=== PATIENT | female | born 1960 | race Caucasian/White ===

== ENCOUNTER 2018-08-13 20:43 | Emergency (ER) | payer OTHER ==
[~2018-08-13] VITALS: Ht 160 cm; Wt 62.1 kg
--- OUTSIDE RECORDS SUMMARY | ~2018-08-13 | XMS | Clinical Summary ---
Demographics + + + | Address | [address] | | | [place] [address] | + + + | Home Phone | | + + + | Preferred Language | Unknown | + + + | Marital Status | | + + + | Spiritism Affiliation | 1013 | + + + | Race | Unknown | + + + | Ethnic Group | Unknown | + + + Author + + + | Author | [facility] | | | and Idrisana | + + + | Organization | [facility] | | | and Idrisana | + + + | Address | Unknown | + + + | Phone | Unavailable | + + + Support + + + + + | Name | Relationship | Address | Phone | + + + + + | None,Per Patient | ECON | 11/21/12 | Unavailable | | | | NA, | | + + + + + | Rafi George | ECON | [address] | | | | | [place] | | | | | [address] | | + + + + + Care Team Providers + +------+ + | Care Materials Engineering Technician Name | Role | Phone | + +------+ + | Pcp, Prov Inactive | PP | | + +------+ + Allergies + + + + + + | Active Allergy | Reactions | Severity | Noted | Comments | | | | | Date | | + + + + + + | [place] Juice | | | 08//20 | | | | | | 13 | | + + + + + + Medications + + + +---------+------+------+-------+ | Medication | Sig | Dispensed | Refills | Star | End | Statu | | | | | | t | Date | s | | | | | | Date | | | + + + +---------+------+------+-------+ | | Take 1-2 tablets by | | 0 | 08/1 | | Activ | | oxyCODONE-acetaminop | mouth every 4 hours | | | 5/20 | | e | | hen (PERCOCET) 5-325 | as needed. | | | 13 | | | | mg per tablet | | | | | | | + + + +---------+------+------+-------+ | | Take 1 tablet by | | 0 | | | Activ | | HYDROcodone-acetamin | mouth every 6 hours | | | | | e | | ophen (NORCO) 5-325 | as needed. | | | | | | | mg per tablet | | | | | | | + + + +---------+------+------+-------+ | cyclobenzaprine | Take 10 mg by mouth | | 0 | | | Activ | | (FLEXERIL) 10 mg | 3 times daily as | | | | | e | | tablet | needed. | | | | | | + + + +---------+------+------+-------+ | buPROPion | Take 100 mg by mouth | | 0 | | | Activ | | (WELLBUTRIN) 100 mg | 2 times daily. | | | | | e | | tablet | | | | | | | + + + +---------+------+------+-------+ | cholecalciferol | Take 2,000 Units by | | 0 | | | Activ | | (VITAMIN D-3) 2000 | mouth Daily. | | | | | e | | UNITS TABS | | | | | | | + + + +---------+------+------+-------+ | gabapentin | Take 600 mg by mouth | | 0 | | | Activ | | (NEURONTIN) 600 MG | 2 times daily. | | | | | e | | tablet | | | | | | | + + + +---------+------+------+-------+ | diclofenac | Place 1 patch onto | | 0 | | | Activ | | (FLECTOR) 1.3% PTCH | the skin 2 times | | | | | e | | | daily. | | | | | | + + + +---------+------+------+-------+ | ibuprofen | Take 600 mg by mouth | | 0 | | | Activ | | (ADVIL,MOTRIN) 600 | every 8 hours as | | | | | e | | MG tablet | needed. | | | | | | + + + +---------+------+------+-------+ | HYDROmorphone | Take 1 tablet by | 20 | 0 | 11/03 | | Activ | | (DILAUDID) 2 mg | mouth up to 4 times | tablet | | 7/20 | | e | | tabletIndications: | daily as needed for | | | 13 | | | | Lumbar | severe pain for the | | | | | | | radiculopathy, | next 5 days. | | | | | | | acute, DDD | | | | | | | | (degenerative disc | | | | | | | | disease), lumbar, | | | | | | | | Spondylolisthesis of | | | | | | | | lumbar region | | | | | | | + + + +---------+------+------+-------+ Active Problems + + + | Problem | Noted Date | + + + | Lumbar radiculopathy, acute | 11/19/2012 | + + + | DDD (degenerative disc disease), lumbar | 11/19/2012 | + + + | Spondylolisthesis of lumbar region | 11/19/2012 | + + + | Facet arthritis of lumbar region | 11/19/2012 | + + + Family History + + +------+ + | Medical History | Relation | Name | Comments | + + +------+ + | Cancer | Mother | | throat CA | + + +------+ + | Cancer | Sister | | Breast CA | + + +------+ + + +------+--------+ + | Relation | Name | Status | Comments | + +------+--------+ + | Mother | | | | + +------+--------+ + | Sister | | | | + +------+--------+ + Social History + + + +--------+------+ | Tobacco Use | Types | Packs/Day | Years | Date | | | | | Used | | + + + +--------+------+ | Current Every Day | Cigarettes | 0.5 | | | | Smoker | | | | | + + + +--------+------+ + +---+---+---+ | Smokeless Tobacco: | | | | | Never Used | | | | + +---+---+---+ + + | Comments: Started smoking age 14. | + + + + +---------+ + | Alcohol Use | Drinks/We | oz/Week | Comments | | | ek | | | + + +---------+ + | No | | | Personal history of alcoholism. None | | | | | currently | + + +---------+ + + + + | Sex Assigned at | Date Recorded | | | | + + + | Not on file | | + + + + + + + | Job Start Date | Occupation | Industry | + + + + | Not on file | Not on file | Not on file | + + + + + + + + | Travel History | Travel Start | Travel End | + + + + + + | No recent travel history available. | + + Last Filed Vital Signs + + + + | Vital Sign | Reading | Time Taken | + + + + | Blood Pressure | 123/87 | 12/19/2012 1022 PDT | + + + + | Pulse | 87 | 12/19/2012 1022 PDT | + + + + | Temperature | - | - | + + + + | Respiratory Rate | 20 | 11/18/20121003 PDT | + + + + | Oxygen Saturation | - | - | + + + + | Inhaled Oxygen | - | - | | Concentration | | | + + + + | Weight | 69.4 kg (153 lb) | 12/19/20121021 PDT | + + + + | Height | 160 cm (5' 3") | 12/19/20121021 PDT | + + + + | Body Mass Index | 27.1 | 12/19/20121021 PDT | + + + + Plan of Treatment + + + + + | Health Maintenance | Due Date | Last Done | Comments | + + + + + | Vaccine: | | | | | Dtap/Tdap/Td (1 - | 2 | | | | Tdap) | | | | + + + + + | Cervical Cancer | | | | | Screening (Pap) | 3 | | | + + + + + | Vaccine: Zoster (1 | | | | | of 2) | 3 | | | + + + + + | Vaccine: Influenza | | | | | (Season Ended) | 9 | | | + + + + + Results Not on filefrom Last 3 Months Insurance + +--------+ +--------+-------+---------+--------+ | Payer | Benefi | Subscriber | Effect | Phone | Address | Type | | | t Plan | ID | dianne | | | | | | / | | Dates | | | | | | Group | | | | | | + +--------+ +--------+-------+---------+--------+ | [employer] | IHS | [id number] | | | | Indemn | | SERVICE | YELLOW | | 013-Pr | | | ity | | | HAWK | | esent | | | | + +--------+ +--------+-------+---------+--------+ + +--------+ +--------+ + + | Guarantor Name | Accoun | Relation to | Date | Phone | Billing Address | | | t Type | Patient | of | | | | | | | | | | + +--------+ +--------+ + + | Mckenzie George | Person | Self | [birth year] | [address] | | | al/Baldo | | 1961 | [phone] | [place] | | | [place] | | | [address] (Home) | [address] | + +--------+ +--------+ + + Advance Directives Patient has advance care planning documents on file. For more information, please contact:[facility] [address]
--- OUTSIDE RECORDS SUMMARY | ~2018-08-13 | XMS | Clinical Summary ---
Demographics + + + | Address | [address] | | | [place] [address] | + + + | Home Phone | | + + + | Preferred Language | Unknown | + + + | Marital Status | | + + + | Catholic Affiliation | 1013 | + + + | Race | Unknown | + + + | Ethnic Group | Unknown | + + + Author + + + | Author | [facility] | | | and Idrisana | + + + | Organization | [facility] | | | and Idrisana | [...] [place] | | | | | [address] | | + + + + + Care Team Providers + +------+ + | Care Diesel Locomotive Crane Operator Name | Role | Phone | + +------+ + | Pcp, Prov Inactive | PP | | + +------+ + Allergies + + + + + + | Active Allergy | Reactions | Severity | Noted | Comments | | | | | Date | | + + + + + + | [place] Juice | | | 08//20 | | [...] | | | + +--------+ +--------+-------+---------+--------+ | [facility] | IHS | [id number] | | | | Indemn | | [...] [place] | | | 1 (Home) | [address] | + +--------+ +--------+ + + Advance Directives Patient has advance care planning documents on file. For more information, please contact:[facility] [address]
[~2018-08-13 20:43] MED LIST: ACETAMINOPHEN325 M1 PO; FISH OIL 1,0001 EAC2; GABAPENTIN600 MG PO; IBUPROFEN600 MG PO; KEFLEX500 MG PO; MORPHINE SULFAT15 MG PO; MORPHINE SULFAT30 M1 PO; MULTIPLE VITAM1 EAC3 PO; NO DAILY MEDICATIONS; PYRIDIUM200 MG PO; VITAMIN D2000 UNI1; WELLBUTRIN SR100 MG PO
--- OUTSIDE RECORDS SUMMARY | 2018-08-13 20:46 | XMS ---
PreManage Notification: ALFONSO ASENCIO Security Finisher Polisher Events No recent Security Events currently on file CRITERIA MET - PDMP CARE PROVIDERS DOCTOR MISC Primary Care Current PHONE: Unknown [facility] Current PHONE: Unknown Family Dental Care Case or Splunk Architect Current DCO PHONE: [phone] [facility] Primary Care 02/19/2014-Current CONCERN PHONE: [phone] Doug has no Care Guidelines for this patient. Kate VISIT COUNT (12 MO.) 1 [facility] Fox 1 [facility] TOTAL 2 NOTE: Visits indicate total known visits. ED/UCC VISIT TRACKING (12 MO.) 08/13/2018 20:44 [facility] [place] TYPE: Emergency COMPLAINT: - ABDOMINAL PAIN 11/18/2017 15:54 [facility] Montero [place] TYPE: Emergency DIAGNOSES: - Abscess INPATIENT VISIT TRACKING (12 MO.) No inpatient visits to display in this time frame [id number]
[2018-08-13] MEDS ORDERED: SUBOXONE 8 MG-1 EAC1 SL (20:57)
[2018-08-13] MEDS ORDERED: CLONIDINE HCL0.1 MG PO (20:57)
== END 2018-08-13 21:58 | disposition home or self-care (01) ==
LOC: ED 20:43
DX: R10.31 Right lower quadrant pain (principal); I10 Essential (primary) hypertension; F17.200 Nicotine dependence, unspecified, uncomplicated
CPT/HCPCS: 80053; 81001; 83690; 85025; 96372; 99284-25; J1885

== ENCOUNTER 2019-04-21 07:11 | Emergency (ER) | payer OTHER ==
[~2019-04-21] VITALS: Ht 162.6 cm; Wt 61.2 kg
--- OUTSIDE RECORDS SUMMARY | ~2019-04-21 | XMS | Encounter Summary ---
Demographics + + + | Address | [address] | | | [place] [address] | + + + | Home Phone | | + + + | Preferred Language | Unknown | + + + | Marital Status | | + + + | Oriental Orthodox Affiliation | 1013 | + + + | Race | Unknown | + + + | Ethnic Group | Unknown | + + + Author + + + | Author | [facility] | | | and Idrisana | + + + | Organization | [facility] | | | and Idrisana | + + + | Address | Unknown | + + + | Phone | Unavailable | + + + Support + + + + + | Name | Relationship | Address | Phone | + + + + + | Per Patient None | ECON | 11/21/12 | Unavailable | | | | NA, | | + + + + + | Rafi Asencio | ECON | [address] | | | | | [place] | | | | | [address] | | + + + + + Care Team Providers + +------+ + | Care Traffic Rate Computer Name | Role | Phone | + +------+ + | Reema Lawrence MD | PCP | | + +------+ + Encounter Details +--------+ + + + + | Date | Type | Department | Care Team | Description | +--------+ + + + + | 01/03/ | Hospital | [facility] | Flakito Samuels | Lumbar | | 2013 | Encounter | MED CTR XRAY [address] | T, MD [address] | radiculopathy; | | | | [place] | [address] [place], [place] | Spondylolisthesis | | | | [place] [address] | [address] | | | | | [phone] | | | +--------+ + + + + Social History + + + +--------+------+ [...] + +---------+ + | Alcohol Use | Drinks/Week | oz/Week | Comments | + + +---------+ + | No | | | Personal history of | | | | | alcoholism. None | | | | | [...] recent travel history available. | + + documented as of this encounter Medications at Time of Discharge + + + +---------+ + + | Medication | Sig | Dispensed | Refills | Start | End Date | | | | | | Date | | + + + +---------+ + + | buPROPion | Take 100 mg by mouth | | 0 | | | | (WELLBUTRIN) 100 mg | 2 times daily. | | | | | | tablet | | | | | | + + + +---------+ + + | cholecalciferol | Take 2,000 Units by | | 0 | | | | (VITAMIN D-3) 2000 | mouth Daily. | | | | | | UNITS TABS | | | | | | + + + +---------+ + + | cyclobenzaprine | Take 10 mg by mouth | | 0 | | | | (FLEXERIL) 10 mg | 3 times daily as | | | | | | tablet | needed. | | | | | + + + +---------+ + + | diclofenac | Place 1 patch onto | | 0 | | | | (FLECTOR) 1.3% PTCH | the skin 2 times | | | | | | | daily. | | | | | + + + +---------+ + + | gabapentin | Take 600 mg by mouth | | 0 | | | | (NEURONTIN) 600 MG | 2 times daily. | | | | | | tablet | | | | | | + + + +---------+ + + | | Take 1 tablet by | | 0 | | | | HYDROcodone-acetamin | mouth every 6 hours | | | | | | ophen (NORCO) 5-325 | as needed. | | | | | | mg per tablet | | | | | | + + + +---------+ + + | HYDROmorphone | Take 1 tablet by | 20 | 0 | // | | | (DILAUDID) 2 mg | mouth up to 4 times | tablet | | 13 | | | tabletIndications: | daily as needed for | | | | | | Lumbar | severe pain for the | | | | | | radiculopathy, | next 5 days. | | | | | | acute, DDD | | | | | | | (degenerative disc | | | | | | | disease), lumbar, | | | | | | | Spondylolisthesis of | | | | | | | lumbar region | | | | | | + + + +---------+ + + | ibuprofen | Take 600 mg by mouth | | 0 | | | | (ADVIL,MOTRIN) 600 | every 8 hours as | | | | | | MG tablet | needed. | | | | | + + + +---------+ + + | | Take 1-2 tablets by | | 0 | 08/15/20 | | | oxyCODONE-acetaminop | mouth every 4 hours | | | 13 | | | hen (PERCOCET) 5-325 | as needed. | | | | | | mg per tablet | | | | | | + + + +---------+ + + documented as of this encounter Plan of Treatment Not on filedocumented as of this encounter Procedures + +--------+ + + + | Procedure Name | Priori | Date/Time | Associated Diagnosis | Comments | | | ty | | | | + +--------+ + + + | XR LUMBAR SPINE 4 + | Routin | 01/04/2013 | Lumbar | Results for this | | VW | e | 7:46 AM | radiculopathy | procedure are in the | | | | PDT | Spondylolisthesis | results section. | + +--------+ + + + | FL SI JOINT | Routin | 01/03/2013 | | Results for this | | INJECTION | e | 5:46 PM | | procedure are in the | | | | PDT | | results section. | + +--------+ + + + documented in this encounter Results XR Lumbar Spine 4 + Vw (01/04/2013 7:46 AM PDT) + + | Specimen | + + | | + + + + + | Narrative | Performed At | + + + | [facility] | [place] | | Department [address] [facility] | | [ rep [address]] [ rep [facility] | | [facility]] Signed | - IMAGING | | | | | Patient Name: MCKENZIE ASENCIO Physician: | | | SAMANTA. : 1960 Age: 52 Sex: F Unit #: [id number] | | | Exam Date: 01/03/13 Location: [facility] | | | Report #: [id number] Page: | | | %(RAD)RES..mtdd.print.filter("pg") of %(RAD) | | | RES..mtdd.print.filter("tpg") | | | | | | Accession Number: [id number] | | | LUMBAR SPINE CLINICAL HISTORY: LOW BACK PAIN. | | | SPONDYLOLISTHESIS. ASSESS FOR INSTABILITY. FINDINGS: | | | Four views of the lumbar spine. Five non-rib bearing, lumbar-type | | | vertebral bodies. There is transitional anatomy at the lumbosacral | | | junction with a left pseudoarthrosis. No significant scoliosis. | | | In the neutral position there is anterolisthesis of L4 on L5. | | | Facet arthrosis is evident at L4-5 and L5-S1. With flexion and | | | extension no significant translation at L4-5. No translation at | | | any additional levels. The soft tissues are unremarkable. | | | IMPRESSION: 1. 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 2. LEFT LUMBOSACRAL | | | PSEUDOARTHROSIS. Dictated Date/Time: 01/04/2013 07:46 | | | Transcribed Date/Time: 01/04/2013 08:50 Occupational Therapy Program Director: | | | RebekahKVNG <<Signature on File>> | | | Ferdinand | | | Chuckie Reed MD01/04/13 9108 <Electronically signed by Ferdinand Noguera | | | Brianna HARVEY> Ferdinand Reed MD 01/04/13 4019 | | | Occupational Therapy Program Director: [employer] Mthyhcfxkzzvx69/02/13 9691 | | | Flakito Samuels MD | | + + + + + + + + | Performing | Address | City/State/Zipcode | Phone Number | | Organization | | | | + + + + + | [facility] | [address] | [place] | [phone] | | [facility] | | [address] | | | - IMAGING | | | | + + + + + FL SI Joint Injection (01/03/2013 5:46 PM PDT) + + | Specimen | + + | | + + + + + | Narrative | Performed At | + + + | [facility] | [place] | | Department [address] [facility] [place] | [facility] | | [ [address]] [ rep [facility] | | st zip] Signed | - IMAGING | | | | | Patient Name: MCKENZIE ASENCIO Physician: | | | SAMANTA : 1960 Age: 52 Sex: F Unit #: [id number] | | | Exam Date: 01/03/13 Location: [facility] | | | Report #: [id number] Page: | | | %(RAD)RES..mtdd.print.filter("pg") of %(RAD) | | | RES..mtdd.print.filter("tpg") | | | | | | Accession Number: [id number] | | | SACROILIAC JOINT STEROID INJECTION, 01/03/2013 ICD-9 CODE: | | | 720.26, sacroiliitis. Ms. Mckenzie Asencio presents to the | | | fluoroscopy suite for a fluoroscopically guided right sacroiliac | | | joint steroid injection as part of conservative management for acute | | | on chronic pain with sacroiliitis. After informed consent was | | | obtained, the patient laid in a prone position on the fluoroscopy | | | table. The right sacroiliac joint was identified under fluoroscopic | | | guidance. The area was prepped and draped in a sterile fashion. A | | | 25-gauge 1-1/2 inch needle was inserted into this region and | | | approximately 3 mL of buffered 1% lidocaine was infused. Then a | | | 22-gauge spinal needle was inserted into the inferior joint space | | | under fluoroscopic guidance. Confirmation into the sacroiliac | | | joint was obtained infusion of approximately 1 mL of Isovue contrast | | | which showed flow within the joint space. Then a combination of 1 ml | | | of 1% lidocaine and 1 mL of 40 mg/mL Kenalog was infused. The | | | patient tolerated the procedure well without complications. Pre and | | | post procedure blood pressures were stable. The patient was given | | | verbal as well as written followup instructions. Prior to | | | the start of the procedure the following were performed and verified | | | including correct patient identity, correct site/side marked and | | | visible, agreement of the procedure to be done, correct patient | | | positioning and an accurate procedure consent form. Any safety | | | precautions based on clinical history and/or medications have been | | | addressed. I personally performed the procedure above. | | | Dictated Date/Time: 01/03/2013 17:46 Transcribed | | | Date/Time: 01/03/2013 19:54 Occupational Therapy Program Director: | | | <<Signature on File>> | | | Flakito Noguera | | | MD Abril01/22/13 1630 <Electronically signed by Flakito Noguera | | | Abril HARVEY> Flakito Samuels MD 01/03/13 1746 | | | Occupational Therapy Program Director: [employer] Mfmbghfrzswng81/01/131953 | | | | | + + + + + + + + | Performing | Address | City/State/Zipcode | Phone Number | | Organization | | | | + + + + + | [facility] | [address] | [place] | [phone] | | [facility] | | [address] | | | - IMAGING | | | | + + + + + documented in this encounter Visit Diagnoses + + | Diagnosis | + + | Lumbar radiculopathy Thoracic or lumbosacral neuritis or radiculitis, unspecified | + + | Spondylolisthesis Congenital spondylolisthesis | + + documented in this encounter
--- OUTSIDE RECORDS SUMMARY | ~2019-04-21 | XMS | Encounter Summary ---
Demographics + + + | Address | [address] | | | [place] [address] | + + + | Home Phone | | + + + | Preferred Language | Unknown | + + + | Marital Status | | + + + | Muslim Affiliation | 1013 | + + + | Race | Unknown | + + + | Ethnic Group | Unknown | + + + Author + + + | Author | [facility] | | | and Idrisana | + + + | Organization | [facility] | | | and Idrisana [...] [place] | | | | | [address] | | + + + + + Care Team Providers + +------+ + | Care Clothes Wringer Name | Role | Phone | + +------+ + | Reema Lawrence MD | PCP | | + +------+ + Reason for Visit + + + | Reason | Comments | + + + | Back Pain | Lower back pain. Radiates in to hip and leg on the right side. No | | | numbness or tingling. | + + + Encounter Details +--------+---------+ + + + | Date | Type | Department | Care Team | Description | +--------+---------+ + + + | 12/19/ | Office | [facility] | Flakito Samuels | Lumbar radiculopathy | | 2012 | Visit | PHYSIATRY [address] | MD Chuckie [address] | (Primary Dx); | | | | [place], | [address] | Spondylolisthesis | | | | [place] [address] | [id number] | | | | | [phone] | | | +--------+---------+ + + + Social History + + [...] + + documented as of this encounter Last Filed Vital Signs + + + + + | Vital Sign | Reading | Time Taken | Comments | + + + + + | Blood Pressure | 123/87 | 12/19/2012 10:22 AM | | | | | PDT | | + + + + + | Pulse | 87 | 12/19/2012 10:22 AM | | | | | PDT | | + + + + + | Temperature | - | - | | + + + + + | Respiratory Rate | - | - | | + + + + + | Oxygen Saturation | - | - | | + + + + + | Inhaled Oxygen | - | - | | | Concentration | | | | + + + + + | Weight | 69.4 kg (153 lb) | 12/19/2012 10:22 AM | | | | | PDT | | + + + + + | Height | 160 cm (5' 3") | 12/19/2012 10:22 AM | | | | | PDT | | + + + + + | Body Mass Index | 27.1 | 12/19/2012 10:22 AM | | | | | PDT | | + + + + + documented in this encounter Patient Instructions Patient Instructions Tiny Medina RN - 12/19/2012 10:45 AM PDTFollow-up at the hospital thirty minutes before your scheduled procedure to allow for time to check in. You may eat and drink as usual on the day of the procedure. Do not take any blood thinning medications for at least 5-7 days prior to your procedure. All other medications should be taken as usual. Common blood thinning medications include: Aspirin (a baby aspirin is o.k.) Ibuprofen (Advil or Motrin) Naproxen (Aleve) Nabumetone (Relafen) Clopidogrel (Plavix) Dipyridamole/ASA (Aggrenox) Warfarin (Coumadin) Dabigatran (Pradaxa) There are many others. If you have questions about your medications please contact our off ice. Please also provide a over the road driver to take you home on the day of the procedure. documented in this encounter Progress Notes Tiny Medina RN - 06/02/2013 3:58 PM PSTI Tiny Medina was practicing as a MA-R, not a RN at this time. Flakito Jurado M D - 12/19/2012 10:26 AM PDT CHIEF COMPLAINT: Chief Complaint Patient presents with Back Pain Radiating into right leg HISTORY OF PRESENT ILLNESS: The patient is a 52 y.o. female being seen today in follow-up for complaints of severe righ t-sided low back and leg pain. The patient has had chronic intermittent low back pain but th e patient's current symptoms began approximately 3 months ago. She was seen for this pain pr eviously and was diagnosed with a radiculopathy. I did try an epidural injection on her and unfortunately she reports that it did not provide much relief if any. 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 Since that time the patien t feels her pain has been worsening. She rates the pain as severe, reportedly 10+/10. She de scribes the pain as a stabbing or burning feeling in her back and shooting into the leg. Her symptoms worsen with any movement. Her symptoms improve with medications. She cannot really find a comfortable position but leaning to the left helps some. The patient does describe n umbness of the right foot. She does not report weakness of the lower extremities. She does n ot have bowel and bladder dysfunction. She does not have saddle anesthesia. Treatments for these complaints have included the injection, narcotic medications and attem pted spinal decompression. Prior injections have included only IM toradol and oral as well as IV narcotics. She has had an MRI of the lumbar spine and this was again reviewed today with the patient francisco j n detail. Current Outpatient Prescriptions Medication Status Sig Dispense Refill buPROPion (WELLBUTRIN) 100 mg tablet Active Take 100 mg by mouth 2 times daily. cholecalciferol (VITAMIN D-3) 2000 UNITS TABS Active Take 2,000 Units by mouth Daily. cyclobenzaprine (FLEXERIL) 10 mg tablet Active Take 10 mg by mouth 3 times daily as nee ded. diclofenac (FLECTOR) 1.3% PTCH Active Place 1 patch onto the skin 2 times daily. gabapentin (NEURONTIN) 600 MG tablet Active Take 600 mg by mouth 2 times daily. HYDROcodone-acetaminophen (NORCO) 5-325 mg per tablet Active Take 1 tablet by mouth magaly ry 6 hours as needed. HYDROmorphone (DILAUDID) 2 mg tablet Active Take 1 tablet by mouth up to 4 times daily as needed for severe pain for the next 5 days. 20 tablet 0 ibuprofen (ADVIL,MOTRIN) 600 MG tablet Active Take 600 mg by mouth every 8 hours as nee ded. oxyCODONE-acetaminophen (PERCOCET) 5-325 mg per tablet Active Take 1-2 tablets by mouth every 4 hours as needed. Allergies Allergen Reactions Tombstone Juice REVIEW OF SYSTEMS: GENERALLY: No fever, no night sweats, no anemia, no fatigue, no recent profound weight neves ges. EYES: No eye problems, no use of corrective lenses, no eye injury, no double vision, no bli ndness. EARS, NOSE, AND THROAT: No changes in taste or smell, no hearing difficulty, no ringing in the ears, no ear drainage, no dizziness, no voice changes, no difficulty swallowing, no sign ificant snoring, no sleep apnea, no sinus problems, no major dental work. NEUROLOGICALLY: Please see the review of systems discussed above in the history of present illness. PSYCHIATRIC: No depression, +difficult sleeping, no anxiety, no bipolar disorder, no psycho tic episodes, + significant history of substance abuse. CARDIOVASCULAR: No heart attacks, no heart murmur, no heart fluttering, no chest pain, no a nkle swelling. LUNG DISEASE: No shortness of breath, no cough, no tuberculosis, no bloody cough, no asthma , no emphysema/COPD. GASTROINTESTINAL: No bowel disease, no nausea or vomiting, no rectal bleeding, no constipat ion, no stool incontinence, no liver disease, no gallbladder disease, no abdominal pain, no ulcers. KIDNEY DISEASE: No urinary frequency, no painful or difficult urination, no incontinence. ENDOCRINE: No diabetes, no thyroid disease, no osteopenia or osteoporosis, no breast draina ge. SKIN: No breast lumps, no skin changes, no rashes, no itches. HEMATOLOGIC/LYMPHATIC: No enlarged lymph nodes, no easy or unusual bleeding, no personal hi story of cancer. RHEUMATOLOGIC: No joint arthritis, no rheumatoid arthritis. + back pain PHYSICAL EXAMINATION: Blood pressure 123/87, pulse 87, height 1.6 m (5' 3"), weight 69.4 kg (153 lb). GENERAL: The patient does appear uncomfortable throughout the exam today. HEENT: Normocephalic and atraumatic. Normal sclerae without icterus. The ears are without drainage. NECK (ANTERIOR): Supple and without palpable masses. There is not cervical lymphadenopathy . PULMONARY: The patient is in no acute respiratory distress with unlabored respirations. CARDIOVASCULAR: Regular rate and rhythm. There is not lower extremity edema. ABDOMEN: Non-distended. SKIN: Limited skin exam shows no significant rashes or lesions. There are not scars in the lumbar region. NEUROLOGIC: The patient is awake, alert, and oriented. She follows simple and complex commands. Her speech is fluent. She appears to comprehend well. She has no apparent deficits with short or fci memory. The cranial nerves appear grossly intact. Sensory exam shows diminished sensation to light touch in the right lower extremity, mostly on the dorsum of the foot. Elsewhere sensation was intact. Reflex RIGHT LEFT Patellar 2+ 2+ Achilles 1+ 1+ Plantar Downgoing Downgoing MUSCULOSKELETAL : Straight leg raise and slump-sit are positive on the right. Eloy's ma neuver and impingement testing were negative for any groin pain. There was no tenderness to palpation over the greater trochanters. She was quite tender to palpation over the right sa cral sulcus. The patient localized the majority of the pain to the right SI region and radia ting down the right leg. Lumbar facet loading was not tested as she was not willing to stand for examination. Strength testing showed 5/5 strength throughout the lower extremities with manual muscle testing although there was some give way weakness with dorsiflexion which was either effort dependent or pain inhibited. The patient was not able to heel and toe walk du e to pain. She sat during most of the exam and had a left lateral shift. She was seen ambula ting only a short distance and had a very antalgic gait, favoring the right leg. There was n o redness, effusion, warmth or joint line tenderness in the knees or ankles. ASSESSMENT: Encounter Diagnoses Name Primary? Lumbar radiculopathy, acute Yes DDD (degenerative disc disease), lumbar Spondylolisthesis of lumbar region Facet arthritis of lumbar region Also has a history of polysubstance abuse. PLAN: 1. Physical exam and history still point to a lumbar radiculitis, L5 distribution on the ri ght but she does also have symptoms consistent with sacroiliitis on the right. It is possib le that the sacroiliitis is giving her the symptoms of radiculopathy, especially since there is no obvious high grade nerve root impingement on the right. She has tried multiple medica tions and continues to have significant pain. She has been to urgent care and the ER on jania ral occasions recently. Due to lack of findings on MRI and no definite neurologic compromise I do not believe she is a great surgical candidate. She has tried some spinal decompression which seems to be helping. I believe that it will be somewhat difficult for her to particip ate much in physical therapy at this point due to the severity of her pain but she was willi ng to give it a try. I did give her a detailed PT prescription. 2. I do also think that it would be reasonable to try an SI joint injection on the right. She does wish to pursue this option and this will be performed in the near future. 3. I did order flexion and extension views of the lumbar spine for further evaluation. Spec ifically I am looking for instability at L4-L5. 4. The patient was agian encouraged to increase her dose of gabapentin to 600 tid and we ma y need to go even higher in the near future. I feel that this will help her neuropathic pain more than the opioids. ELECTRONICALLY SIGNED BY: Flakito Samuels MD, 12/19/2012 documented in this encounter Plan of Treatment + +---------+--------+ + + | Name | Type | Priori | Associated Diagnoses | Order Schedule | | | | ty | | | + +---------+--------+ + + | XR Lumbar Spine 4 + | Imaging | Routin | Lumbar | Expected: | | Vw | | e | radiculopathy | 12/19/2012, Expires: | | | | | Spondylolisthesis | 12/19/2013 | + +---------+--------+ + + documented as of this encounter Visit Diagnoses + + | Diagnosis | + + | Lumbar radiculopathy - Primary Thoracic or lumbosacral neuritis or radiculitis, | | unspecified | + + | Spondylolisthesis Congenital spondylolisthesis | + + documented in this encounter
--- OUTSIDE RECORDS SUMMARY | ~2019-04-21 | XMS | Encounter Summary ---
Demographics + + + | Address | [address] | | | [place] [address] | + + + | Home Phone | | + + + | Preferred Language | Unknown | + + + | Marital Status | | + + + | Anabaptism Affiliation | 1013 | + + + | Race | Unknown | + + + | Ethnic Group | Unknown | + + + Author + + + | Author | [facility] | | | and Idrisana | + + + | Organization | [facility] | | | and Idrisana [...] [place] | | | | | [address] | | + + + + + Care Team Providers + +------+ + | Care Alodize Machine Helper Name | Role | Phone | + +------+ + | Reema Lawrence MD | PCP | | + +------+ + Encounter Details +--------+ + + + + | Date | Type | Department | Care Team | Description | +--------+ + + + + | 01/03/ | Hospital | [facility] | Flakito Samuels | Lumbar | | 2013 | Encounter | MED CTR XRAY [address] | T, MD [address] | radiculopathy; | | | | [address] | [address] [place], [place] | Spondylolisthesis | | | | [place] [address] | [address] | | | | | [phone] | | | +--------+ + + + [...] Performed At | + + + | [facility] | [place] | | Department [address] [facility] | | [ rep [address]] [ rep [facility] | | [facility]] Signed | - IMAGING | | | | | Patient Name: MCKENZIE ASENCIO Physician: | | | SAMANTA. : 1960 Age: 52 Sex: F Unit #: [id number] | | | Exam Date: 01/03/13 Location: [facility] | | | Report #: [id number] Page: | | | %(RAD)RES..mtdd.print.filter("pg") of %(RAD) | | | RES..mtdd.print.filter("tpg") | | | | | | Accession Number: [id number] | | | LUMBAR SPINE CLINICAL HISTORY: [...] | | | Transcribed Date/Time: 01/04/2013 08:50 Asset Management Coordinator: | | | RebekahKVNG <<Signature on File>> | | | Ferdinand | | | Chuckie Reed MD01/04/13 2533 <Electronically signed by Ferdinand Noguera | | | Brianna HARVEY> Ferdinand Reed MD 01/04/13 7773 | | | Asset Management Coordinator: UGOBE Npjaciauszghj33/02/13 6226 | | | Flakito Samuels MD | | + + + + + + + + | Performing | Address | City/State/Zipcode | Phone Number | | Organization | | | | + + + + + | [facility] | [address] | [place] | [phone] | | [facility] | | [address] | | | - IMAGING | | | | + + + + + FL SI Joint Injection (01/03/2013 5:46 PM PDT) + + | Specimen | + + | | + + + + + | Narrative | Performed At | + + + | [facility] | [place] | | Department [address] [facility] [place] | [facility] | | [ [address]] [ rep [facility] | | st zip] Signed | - IMAGING | | | | | Patient Name: MCKENZIE ASENCIO Physician: | | | SAMANTA : 1960 Age: 52 Sex: F Unit #: [id number] | | | Exam Date: 01/03/13 Location: [facility] | | | Report #: [id number] Page: | | | %(RAD)RES..mtdd.print.filter("pg") of %(RAD) | | | RES..mtdd.print.filter("tpg") | | | | | | Accession Number: [id number] | | | SACROILIAC JOINT STEROID INJECTION, [...] Transcribed | | | Date/Time: 01/03/2013 19:54 Asset Management Coordinator: | | | <<Signature on File>> | | | Flakito Noguera | | | MD Abril01/22/13 1630 <Electronically signed by Flakito Noguera | | | Abril HARVEY> Flakito Samuels MD 01/03/13 1746 | | | Asset Management Coordinator: [employer] [id number] | | | | | + + + + + + + + | Performing | Address | City/State/Zipcode | Phone Number | | Organization | | | | + + + + + | [facility] | [address] | [place] | [phone] | | [facility] | | [address] | | | - IMAGING | | | | + + + + + documented in this encounter Visit Diagnoses + + | Diagnosis | + + | Lumbar radiculopathy Thoracic or lumbosacral neuritis or radiculitis, unspecified | + + | Spondylolisthesis Congenital spondylolisthesis | + + documented in this encounter
--- OUTSIDE RECORDS SUMMARY | ~2019-04-21 | XMS | Encounter Summary ---
Demographics + + + | Address | [address] | | | [place] [address] | + + + | Home Phone | | + + + | Preferred Language | Unknown | + + + | Marital Status | | + + + | Nondenominational Affiliation | 1013 | + + + | Race | Unknown | + + + | Ethnic Group | Unknown | + + + Author + + + | Author | [facility] | | | and Idrisana | + + + | Organization | [facility] | | | and [...] [place] | | | | | [address] | | + + + + + Care Team Providers + +------+ + | Care Television Equipment Operator Name | Role | Phone | + +------+ + | Reema Lawrence MD | PCP | | + +------+ + Reason for Visit + + + | Reason | Comments | + + + | Back Pain | Radiating into right leg | + + + Evaluate & Treat (Routine) +--------+--------+ + + + + | Status | Reason | Specialty | Diagnoses / | Referred By | Referred To | | | | | Procedures | Contact | Contact | +--------+--------+ + + + + | Closed | | Physical | Diagnoses | Howard, | Abril, | | | | Medicine and | Low back | MD Reema | Flakito Noguera MD | | | | Rehabilitatio | pain | [address] | [address] | | | | n | radiating to | [address] [place] | [address] [place] | | | | | right leg | [place], [place] | [place], [place] | | | | | | [address] | [address] Phone: | | | | | | Phone: | [phone] | | | | | | [phone] | Fax: | | | | | | Fax: | [phone] | | | | | | [phone] | | +--------+--------+ + + + + Encounter Details +--------+---------+ + + + | Date | Type | Department | Care Team | Description | +--------+---------+ + + + | 11/18/ | Office | [facility] | Flakito Samuels | Lumbar | | 2012 | Visit | PHYSIATRY [address] | radiculopathy, acute | | | | [place], | [place], [place] | (Primary Dx); DDD | | | | [place] [address] | [address] | (degenerative disc | | | | [phone] | | disease), lumbar; | | | | | | Spondylolisthesis of | | | | | | lumbar region; | | | | | | Facet arthritis of | | | | | | lumbar region | +--------+---------+ + + + Social History [...] this encounter Last Filed Vital Signs + +---------+ + + | Vital Sign | Reading | Time Taken | Comments | + +---------+ + + | Blood Pressure | 146/100 | 11/18/2012 10:04 AM | | | | | PDT | | + +---------+ + + | Pulse | 96 | 11/18/2012 10:04 AM | | | | | PDT | | + +---------+ + + | Temperature | - | - | | + +---------+ + + | Respiratory Rate | 20 | 11/18/2012 10:04 AM | | | | | PDT | | + +---------+ + + | Oxygen Saturation | - | - | | + +---------+ + + | Inhaled Oxygen | - | - | | | Concentration | | | | + +---------+ + + | Weight | - | - | | + +---------+ + + | Height | - | - | | + +---------+ + + | Body Mass Index | - | - | | + +---------+ + + documented in this encounter Patient Instructions Patient Instructions Flakito Samuels MD - 11/19/2012 3:56 [facility] minutes before your scheduled procedure [...] our off ice. Please also provide a bus van driver to take you home on the day of the procedure. documented in this encounter Progress Notes Flakito Samuels MD - 11/19/2012 3:23 PM PDT CHIEF COMPLAINT: Chief Complaint Patient presents with Back Pain Radiating into right leg HISTORY OF PRESENT ILLNESS: The patient is a 52 y.o. female being seen today at the request of Dr. Reema Lawrence for co mplaints of sever right-sided low back and leg pain. The patient's symptoms began approxim ately a month and a half ago. She believes the symptoms started after picking up a lawn mow er. Since that time the patient feels her pain has been worsening. She rates the pain as severe, reportedly 10+/10. She describes the pain as a stabbing or burning feeling in her b ack and shooting into the leg. Her symptoms worsen with any movement. Her symptoms improve with medications. She cannot really find a comfortable position but leaning to the left he lps some. The patient does describe numbness of the right foot. She does not report weak ness of the lower extremities. She does not have bowel and bladder dysfunction. She does no t have saddle anesthesia. Treatments for these complaints have included medications and attempted spinal decompressio n. Prior injections have included only IM toradol and IV narcotics. No steroid injections as far as I can tell. She has had an MRI of the lumbar spine and this was reviewed today with the patient in [facility]. PAST MEDICAL HISTORY: Past Medical History Diagnosis Date Polysubstance abuse Hyperlipidemia Alcohol dependence, episodic Vitamin d deficiency Lumbar radiculopathy, acute 11/19/2012 DDD (degenerative disc disease), lumbar 11/19/2012 Facet arthritis of lumbar region 11/19/2012 PAST SURGICAL HISTORY: Past Surgical History Procedure Date Colonoscopy CURRENT MEDICATIONS: Current Outpatient Prescriptions Medication Sig Dispense Refill buPROPion (WELLBUTRIN) 100 mg tablet Take 100 mg by mouth 2 times daily. cholecalciferol (VITAMIN D-3) 2000 UNITS TABS Take 2,000 Units by mouth Daily. cyclobenzaprine (FLEXERIL) 10 mg tablet Take 10 mg by mouth 3 times daily as needed. diclofenac (FLECTOR) 1.3% PTCH Place 1 patch onto the skin 2 times daily. gabapentin (NEURONTIN) 600 MG tablet Take 600 mg by mouth 2 times daily. HYDROcodone-acetaminophen (NORCO) 5-325 mg per tablet Take 1 tablet by mouth every 6 ho urs as needed. ibuprofen (ADVIL,MOTRIN) 600 MG tablet Take 600 mg by mouth every 8 hours as needed. oxyCODONE-acetaminophen (PERCOCET) 5-325 mg per tablet Take 1-2 tablets by mouth every 4 hours as needed. ALLERGIES: Allergies Allergen Reactions [place] Juice SOCIAL HISTORY: The patient reports that she has been smoking Cigarettes. She has been smoking about .5 p acks per day. She has never used smokeless tobacco. She reports that she does not drink alco hol or use illicit drugs currently but has in the past. FAMILY HISTORY: Family History Problem Relation Age of Onset Cancer Mother throat CA Cancer Sister Breast CA REVIEW OF SYSTEMS: GENERALLY: No fever, no night sweats, no anemia, no fatigue, no recent profound weight ch anges. EYES: No eye problems, no use of corrective lenses, no eye injury, no double vision, no bl indness. EARS, NOSE, AND THROAT: No changes in taste or smell, no hearing difficulty, no ringing in the ears, no ear drainage, no dizziness, no voice changes, no difficulty swallowing, no sig nificant snoring, no sleep apnea, no sinus problems, no major dental work. NEUROLOGICALLY: Please see the review of systems discussed above in the history of present illness. PSYCHIATRIC: No depression, +difficult sleeping, no anxiety, no bipolar disorder, no psych otic episodes, + significant history of substance abuse. CARDIOVASCULAR: No heart attacks, no heart murmur, no heart fluttering, no chest pain, no ankle swelling. LUNG DISEASE: No shortness of breath, no cough, no tuberculosis, no bloody cough, no asth ma, no emphysema/COPD. GASTROINTESTINAL: No bowel disease, no nausea or vomiting, no rectal bleeding, no constipa tion, no stool incontinence, no liver disease, no gallbladder disease, no abdominal pain, no ulcers. KIDNEY DISEASE: No urinary frequency, no painful or difficult urination, no incontinence. ENDOCRINE: No diabetes, no thyroid disease, no osteopenia or osteoporosis, no breast drain age. SKIN: No breast lumps, no skin changes, no rashes, no itches. HEMATOLOGIC/LYMPHATIC: No enlarged lymph nodes, no easy or unusual bleeding, no personal h istory of cancer. RHEUMATOLOGIC: No joint arthritis, no rheumatoid arthritis. + back pain PHYSICAL EXAMINATION: Blood pressure 146/100, pulse 96, resp. rate 20, last menstrual period 10/17/2012. Height 6 3 inches. Weight 157 lbs. BMI: 27.81 GENERAL: The patient does appear uncomfortable throughout [...] has no apparent deficits with short or penitentiary memory. The cranial nerves appear grossly intact. Sensory exam shows diminished sensation to light touch in the right lower extremity, mostly on the dorsum of the foot. Elsewhere sensation was intact. REFLEX: RIGHT LEFT PATELLAR 2+ 2+ ACHILLES 2+ 2+ PLANTAR downgoing downgoing MUSCULOSKELETAL : Musculoskeletal: Straight leg raise and slump-sit are positive on the ri ght. Eloy's maneuver and impingement testing were negative for any groin pain. There w as no tenderness to palpation over the greater trochanters or sacral sulci. The patient loc alized the majority of the pain to the right buttock region and radiating down the right leg . Lumbar facet loading was not tested as she was not willing to stand for examination. Str ength testing showed 5/5 strength throughout the lower extremities with manual muscle testin g although there was some give way weakness with dorsiflexion which was either effort depend ent or pain inhibited. The patient was not able to heel and toe walk due to pain. She sat during the entire exam and had a left lateral shift. She was seen ambulating only a short d istance and had a very antalgic gait, favoring the right leg. There was no redness, effusio n, warmth or joint line tenderness in the knees or ankles. ASSESSMENT: Encounter Diagnoses Name Primary? Lumbar radiculopathy, acute Yes DDD (degenerative disc disease), lumbar Spondylolisthesis of lumbar region Facet arthritis of lumbar region Also has a history of polysubstance abuse. PLAN: 1. The patient is in significant discomfort. Physical exam and history point to an acute lumbar radiculitis, L5 distribution on the right. She has tried multiple medications and co ntinues to have significant pain. She has been to urgent care and the ER on several occasio ns recently. Due to lack of findings on MRI and no definite neurologic compromise I do not believe she is a great surgical candidate. She has tried some spinal decompression which se ems to be helping. I believe that it would be very difficult for her to participate much in physical therapy at this point due to the severity of her pain. I think that it would be re asonable to try an epidural injection on the right at L5-S1 using the transforaminal approac h. She does wish to pursue this option and this will be performed in the near future. She has received several doses of Toradol recently and has also been taking Ibuprofen so I feel it would be best for her to wait at least 3 days prior to the injection. I will try to get her back in for an injection next Wednesday. 2. The patient was encouraged to increase her dose of gabapentin to 600 tid and we may nee d to go even higher in the near future. I feel that this will help her neuropathic pain mor e than the opioids. 3. The patient was very worried that she wouldn't be able to make it through the weekend w ithout significant discomfort with the medications that she currently has at home and withou t her NSAIDs. Given her history of polysubstance abuse I was quite hesitant to prescribe an ything stronger than the oxycodone/apap that she has already received from others but in the end I did agree to give her a small amount of Hydromorphone 2 mg to take up to 4 times shwetha y until she can get the injection. I will not be prescribing narcotics to her penitentiary. Harpreet milton is not opioid naive but I did warn her of the effects of narcotics and she will be monitor ed closely by her brother this weekend. ELECTRONICALLY SIGNED BY: Flakito Samuels MD, 11/19/2012 15:23 documented in this encounter Plan of Treatment Not on filedocumented as of this encounter Visit Diagnoses + + | Diagnosis | + + | Lumbar radiculopathy, acute - Primary Thoracic or lumbosacral neuritis or | | radiculitis, unspecified | + + | DDD (degenerative disc disease), lumbar Degeneration of lumbar or lumbosacral | | intervertebral disc | + + | Spondylolisthesis of lumbar region Acquired spondylolisthesis | + + | Facet arthritis of lumbar region Lumbosacral spondylosis without myelopathy | + + documented in this encounter"
--- OUTSIDE RECORDS SUMMARY | ~2019-04-21 | XMS | Encounter Summary ---
Demographics + + + | Address | [address] | | | [place] [address] | + + + | Home Phone | | + + + | Preferred Language | Unknown | + + + | Marital Status | | + + + | Islam Affiliation | 1013 | + + + | Race | Unknown | + + + | Ethnic Group | Unknown | + + + Author + + + | Author | [facility] | | | and Idrisana | + + + | Organization | [facility] | | | and [place]rsiana | + + + | Address | [...] [place] | | | | | [address] | | + + + + + Care Team Providers + +------+ + | Care Pottery Decoration Designer Name | Role | Phone | + +------+ + | Reema Lawrence MD | PCP | | + +------+ + Encounter Details +--------+ + + + + | Date | Type | Department | Care Team | Description | +--------+ + + + + | 11/21/ | Hospital | [facility] | Flakito Samuels | | | 2012 | Encounter | MED CTR XRAY [address] | | | | | [place] | [place], [place] | | | | | [place] [address] | [address] | | | | | [phone] | | | +--------+ + + + [...] tablet by | 20 | 0 | 11/19/ | | | (DILAUDID) 2 mg | [...] + +--------+ + + + | [place] EPIDURAL STEROID | Routin | 11/23/2012 | | Results for this | | INJECTION LUMBAR | e | 7:32 AM | | procedure are in the | | TRANSFORAMINAL | | PDT | | results section. | + +--------+ + + + documented in this encounter Results FL DERRICK Lumbar Transforaminal (11/23/2012 7:32 AM PDT) + + | Specimen | + + | | + + + + + | Narrative | Performed At | + + + | [facility] | [place] | | Department [address], [place] | [facility] | | [ rep [address]] [ rep [facility] | | [facility]] Signed | - IMAGING | | | | | Patient Name: ALFONSO ASENCIO Physician: | | | ELBA : 1960 Age: 52 Sex: F Unit #: [id number] | | | Exam Date: 11/21/12 [place] [facility] [place] | | | Report #: [id number] Page: | | | %(RAD)RES..mtdd.print.filter("pg") of %(RAD) | | | RES..mtdd.print.filter("tpg") | | | | | | Accession Number: [id number] | | | EPIDURAL STEROID INJECTION, 11/21/2012 ICD-9 CODE: 724.4, | | | lumbar radiculopathy. Ms. Alfonso Asencio presents to the | | | fluoroscopy suite for a fluoroscopically guided right L5-S1 | | | transforaminal epidural steroid injection as part of conservative | | | management for chronic pain with lumbar radiculopathy and | | | degenerative disk disease. After informed consent was obtained, the | | | patient laid in a prone position on the fluoroscopy table. The | | | area was identified under fluoroscopy and these areas were prepped | | | and draped in a sterile fashion. A 25-gauge 1-1/2 inch needle was | | | inserted into each region. Approximately 3 mL of buffered 1% | | | lidocaine was infused, then a 22-gauge spinal needle was inserted | | | into the posterior superior transforaminal space, and advanced into | | | the epidural space under fluoroscopic guidance. Confirmation into | | | the epidural space was obtained with the infusion of approximately 1 | | | mL of Isovue contrast which showed epidural flow as well as nerve | | | sheath flow. Then, a combination of 1-1/2 mL of 1% lidocaine and | | | 1-1/2 mL of 6 mg/mL Celestone was infused. The patient tolerated | | | the procedure well without complications. Pre and post procedure | | | blood pressures were stable. The patient was given verbal as well | | | as written followup instructions. The patient reported no | | | significant change in symptoms post procedure. Prior to the | | | start of the procedure the following were [...] performed the procedure above. | | | <<Signature on File>> | | | Flakito Noguera | | | MD Abril12/05/12 1359 <Electronically signed by Flakito Noguera | | | Abril HARVEY> Flakito Samuels MD 11/23/12 4683 | | | Sed Special Education Teacher: Betty [id number] | | | | | + + + + + + + + | Performing | Address | City/State/Zipcode | Phone Number | | Organization | | | | + + + + + | [facility] | [address] | [place] | [phone] | | [facility] | | [address] | | | - IMAGING | | | | + + + + + documented in this encounter Visit Diagnoses Not on filedocumented in this encounter
--- OUTSIDE RECORDS SUMMARY | ~2019-04-21 | XMS | Encounter Summary ---
Demographics + + + | Address | [address] | | | [place] [address] | + + + | Home Phone | | + + + | Preferred Language | Unknown | + + + | Marital Status | | + + + | Hindu Affiliation | 1013 | + + + | Race | Unknown | + + + | Ethnic Group | Unknown | + + + Author + + + | Author | [facility] | | | and Idrisana | + + + | Organization | [facility] | | | and Idrisana [...] [place] | | | | | [address] | | + + + + + Care Team Providers + +------+ + | Care Perpetual Inventory Clerk Name | Role | Phone | + +------+ + | Reema Lawrence MD | PCP | | + +------+ + Encounter Details +--------+ + + + + | Date | Type | Department | Care Team | Description | +--------+ + + + + | 01/03/ | Orders Only | [facility] [place] | Flakito Samuels | Lumbar radiculopathy | | 2012 | | PHYSIATRY [address] | (Primary Dx); | | | | [place], | [place] | Spondylolisthesis | | | | [place] [address] | [address] | | | | | [phone] | | | +--------+ + + + [...] Not on filedocumented as of this encounter Results XR Lumbar Spine 4 + Vw (01/04/2013 7:46 AM PDT) + + | Specimen | + + | | + + + + + | Narrative | Performed At | + + + | [facility] | [place] | | Department [address] [place] [address] | [facility] | | [ rep [address]] [ rep [facility] | | [facility]] Signed | - IMAGING | | | | | Patient Name: ALFONSO ASENCIO Physician: | | | SAMANTA. : 1960 Age: 52 Sex: F Unit #: [id number] | | | Exam Date: 01/03/13 [place]: [facility] [place] | | | Report #: [id number] Page: | | | %(RAD)RES..mtdd.print.filter("pg") of %(RAD) | | | RES..mtdd.print.filter("tpg") | | | | | | Accession Number: [id number] | | | LUMBAR SPINE CLINICAL HISTORY: [...] | | | Transcribed Date/Time: 01/04/2013 08:50 Bankruptcy Legal Assistant: | | | KVNG <<Signature on File>> | | | Ferdinand | | | Chuckie Reed MD01/04/13 2157 <Electronically signed by Ferdinand Noguera | | | Brianna HARVEY> Ferdinand Reed MD 01/04/13 7317 | | | Bankruptcy Legal Assistant: AdWired [id number]/02/13 3104 | | | Flakito Samuels MD | | + + + + + + + + | Performing | Address | City/State/Zipcode | Phone Number | | Organization | | | | + + + + + | [facility] | [address] | [place] | [phone] | | [facility] | | [address] | | | - IMAGING | | | | + + + + + documented in this encounter Visit Diagnoses + + | Diagnosis | + + | Lumbar radiculopathy - Primary Thoracic or lumbosacral neuritis or radiculitis, | | unspecified | + + | Spondylolisthesis Congenital spondylolisthesis | + + documented in this encounter
--- OUTSIDE RECORDS SUMMARY | ~2019-04-21 | XMS | Encounter Summary ---
Demographics + + + | Address | [address] | | | [place] [address] | + + + | Home Phone | | + + + | Preferred Language | Unknown | + + + | Marital Status | | + + + | Pentecostalism Affiliation | 1013 | + + + | Race | Unknown | + + + | Ethnic Group | Unknown | + + + Author + + + | Author | [facility] | | | and Idrisana | + + + | Organization | [facility] | | | and Idrisana [...] [place] | | | | | [address] | | + + + + + Care Team Providers + +------+ + | Care Assistant Professor Name | Role | Phone | + +------+ + | Reema Lawrence MD | PCP | | + +------+ + Reason for Visit +--------+ + | Reason | Comments | +--------+ + | Other | XR results | +--------+ + Encounter Details +--------+ + + + + | Date | Type | Department | Care Team | Description | +--------+ + + + + | 01/09/ | Telephone | [facility] | Kemi Yancey | Other (XR results) | | 2012 | | PHYSIATRY [address], [place] | | | | | [place], | | | | | | [place] [address] | | | | | | [phone] | | | +--------+ + + + [...] filedocumented as of this encounter Visit Diagnoses Not on filedocumented in this encounter"
--- OUTSIDE RECORDS SUMMARY | ~2019-04-21 | XMS | Encounter Summary ---
Demographics + + + | Address | [address] | | | [place] [address] | + + + | Home Phone | | + + + | Preferred Language | Unknown | + + + | Marital Status | | + + + | Episcopalian Affiliation | 1013 | + + + | Race | Unknown | + + + | Ethnic Group | Unknown | + + + Author + + + | Author | [facility] | | | and Idrisana | + + + | Organization | [facility] | [...] [place] | | | | | [address] | | + + + + + Care Team Providers + +------+ + | Care Instructional Coordinator Name | Role | Phone | + +------+ + | Reema Lawrence MD | PCP | | + +------+ + Encounter Details +--------+ + + + + | Date | Type | Department | Care Team | Description | +--------+ + + + + | 11/21/ | Hospital | [facility] | Flakito Samuels | | | 2012 | Encounter | MED CTR XRAY [address] | | | | | [place] | [place], [place] | | | | | [place] [address] | [address] | | | | | [phone] | | | +--------+ + + + [...] Performed At | + + + | [facility] Diagnostic Imaging | [place] | | Department [address], [place] | [facility] | | [ [address]] [ rep [facility] | | [facility]] Signed | - IMAGING | | | | | Patient Name: ALFONSO ASENCIO Physician: | | | ELBA : 1960 Age: 52 Sex: F Unit #: [id number] | | | Exam Date: 11/21/12 Location[facility] | | | Report #: [id number] Page: | | | %(RAD)RES..mtdd.print.filter("pg") of %(RAD) | | | RES..mtdd.print.filter("tpg") | | | | | | Accession Number: [id number] | | | EPIDURAL STEROID INJECTION, 11/21/2012 [...] | Abril HARVEY> Flakito Samuels MD 11/23/12 4392 | | | Analysis Tester: Betty [id number] | | | | | + + + + + + + + | Performing | Address | City/State/Zipcode | Phone Number | | Organization | | | | + + + + + | [facility] | [address] | [place] | [phone] | | [facility] | | [address] | | | - IMAGING | | | | + + + + + documented in this encounter Visit Diagnoses Not on filedocumented in this encounter
--- OUTSIDE RECORDS SUMMARY | ~2019-04-21 | XMS | Encounter Summary ---
Demographics + + + | Address | [address] | | | [place] [address] | + + + | Home Phone | | + + + | Preferred Language | Unknown | + + + | Marital Status | | + + + | Yarsani Affiliation | 1013 | + + + | Race | Unknown | + + + | Ethnic Group | Unknown | + + + Author + + + | Author | [facility] | | | and Idrisana | + + + | Organization | [facility] | | | and [place]risana [...] [place] | | | | | [address] | | + + + + + Care Team Providers + +------+ + | Care Lav Crewman Name | Role | Phone | + [...] | | | | | | [place] [address] | | | | | | [phone] | | | +--------+ + + + [...]
--- OUTSIDE RECORDS SUMMARY | ~2019-04-21 | XMS | Clinical Summary ---
Demographics + + + | Address | [address] | | | [place] [address] | + + + | Home Phone | | + + + | Preferred Language | Unknown | + + + | Marital Status | | + + + | Roman Catholic Affiliation | 1013 | + + + | Race | Unknown | + + + | Ethnic Group | Unknown | + + + Author + + + | Author | [facility] | | | and Idrisana | + + + | Organization | [facility] | | | and Idrisana | [...] [place] | | | | | [address] | | + + + + + Care Team Providers + +------+ + | Care Meat Packager Name | Role | Phone | + +------+ + | Pcp, Prov Inactive | PCP | | + +------+ + Allergies + + + + + + | Active Allergy | Reactions | Severity | Noted | Comments | | | | | Date | | + + + + + + | [place] Juice | | | 08/20 | | | | | | 13 [...] to 4 times | tablet | | / | | e | | tabletIndications: | [...] | | + + + + + Plan of Treatment + + + + + | Health Maintenance | Due Date | Last Done | Comments | + + + + + | Vaccine: | | | | | Dtap/Tdap/Td (1 - | 4 | | | | Tdap) | | | | + + + + + | Cervical Cancer | | | | | Screening (Pap) | 3 | | | + + + + + | Vaccine: Zoster (1 | | | | | of 2) | 3 | | | + + + + + | Breast Cancer | | | | | Screening | 8 | | | + + + + + | Vaccine: Influenza | | | | | (#1) | 9 | | | + + [...] | | | + +--------+ +--------+-------+---------+--------+ | [facility] | [facility] | [id number] | | | | Indemn | | [...] | Self | [birth year] | [address] | | | al/Fam | | 1961 | [phone] | [place] | | | darrian | | | 1 (Home) | [phone] | + +--------+ +--------+ + + Advance Directives + + + + + | Type | Date Recorded | Patient | Explanation | | | | Wood Ski Maker | | + + + + + | Power of | | | | | Safety Trainer | | | | + + + + + | Advance | | | | | Directive | | | | + + + + +
--- OUTSIDE RECORDS SUMMARY | ~2019-04-21 | XMS | Encounter Summary ---
Demographics + + + | Address | [address] | | | [place] [address] | + + + | Home Phone | | + + + | Preferred Language | Unknown | + + + | Marital Status | | + + + | Judaism Affiliation | 1013 | + + + | Race | Unknown | + + + | Ethnic Group | Unknown | + + + Author + + + | Author | [facility] | | | and Idrisana | + + + | Organization | [facility] | | | and Idrisana [...] [place] | | | | | [address] | | + + + + + Care Team Providers + +------+ + | Care Corn Grinder Name | Role | Phone | + [...] [place] | | | | | | [address] | [address] Phone: | | | | | | Phone: | [phone] | | | | | | [phone] | Fax: | | | | | | Fax: | [phone] | | | | | | [phone] | | +--------+--------+ + + + + Encounter Details +--------+---------+ + + + | Date | Type | Department | Care Team | Description | +--------+---------+ + + + | 11/18/ | Office | [facility] | Flakito Samuels | Lumbar | | 2012 | Visit | [address]ATRY [address] | [address] | radiculopathy, acute | | | | [place], | [place], [place] | (Primary Dx); DDD | | | | [place] [address] | [address] | (degenerative disc | | | | [phone] | | disease), lumbar; | | | [...] - 11/19/2012 3:[facility] your [facility] [...] our off ice. Please also provide a ambulance driver paramedic to take you home on the day [...] today with the patient in [facility]. PAST MEDICAL HISTORY: Past Medical History Diagnosis [...] hours as needed. ALLERGIES: Allergies Allergen Reactions [place] Juice SOCIAL HISTORY: The patient reports that [...]
--- OUTSIDE RECORDS SUMMARY | ~2019-04-21 | XMS | Clinical Summary ---
Demographics + + + | Address | [address] | | | [place] [address] | + + + | Home Phone | | + + + | Preferred Language | Unknown | + + + | Marital Status | | + + + | Buddhist Affiliation | 1013 | + + + | Race | Unknown | + + + | Ethnic Group | Unknown | + + + Author + + + | Author | [facility] | | | and Idrisana | + + + | Organization | [facility] | | | and Idrisana [...] [place] | | | | | [address] | | + + + + + Care Team Providers + +------+ + | Care Subgrade Roller Operator Name | Role | Phone | + +------+ + | Pcp, Prov Inactive | PCP | | + +------+ + Allergies + + + + + + | Active Allergy | Reactions | Severity | Noted | Comments | | | | | Date | | + + + + + + | [place] Juice | | | 08/20 | | [...] | | | + +--------+ +--------+-------+---------+--------+ | [facility] | IHS | [id number] | | | | Indemn | | [...] | | al/Fam | | 1961 | [phone] | [place] | | | [place] | | | 1 (Home) | [address] | + +--------+ +--------+ + + Advance Directives + + + + + | Type | Date Recorded | Patient | Explanation | | | | Clinical Laboratory Service Teacher | | + + + + + | Power of | | | | | Lease Out Man | | | | + + + + + | Advance | | | | | Directive | | | | + + + + +
--- OUTSIDE RECORDS SUMMARY | ~2019-04-21 | XMS | Encounter Summary ---
Demographics + + + | Address | [address] | | | [place] [address] | + + + | Home Phone | | + + + | Preferred Language | Unknown | + + + | Marital Status | | + + + | Christian Affiliation | 1013 | + + + | Race | Unknown | + + + | Ethnic Group | Unknown | + + + Author + + + | Author | [facility] | | | and Idrisana | + + + | Organization | [facility] | | | and Idrisana [...] [place] | | | | | [address] | | + + + + + Care Team Providers + +------+ + | Care Brand Marketing Intern Name | Role | Phone | + [...] + + | 12/19/ | Office | [facility] | Flakito Samuels | Lumbar radiculopathy | | 2012 | Visit | [address] | MD Chuckie [address] | (Primary Dx); | | | | [place], | [address] [place] | Spondylolisthesis | | | | [place] [address] | [id number] | | | | | [phone] | | | +--------+---------+ + + + [...] our off ice. Please also provide a auto haulaway driver to take you home on the [...] the symptoms started after picking up a seam hammerer. Since that time the patien t feels [...] 4 hours as needed. Allergies Allergen Reactions [place] Juice REVIEW OF SYSTEMS: GENERALLY: No fever, [...] has no apparent deficits with short or correction memory. The cranial nerves appear grossly intact. [...]
--- OUTSIDE RECORDS SUMMARY | ~2019-04-21 | XMS | Encounter Summary ---
Demographics + + + | Address | [address] | | | [place] [address] | + + + | Home Phone | | + + + | Preferred Language | Unknown | + + + | Marital Status | | + + + | Gnosticist Affiliation | 1013 | + + + | Race | Unknown | + + + | Ethnic Group | Unknown | + + + Author + + + | Author | [facility] | | | and Idrisana | + + + | Organization | [facility] | | | and Idrisana [...] [place] | | | | | [address] | | + + + + + Care Team Providers + +------+ + | Care Airfield Services Officer Name | Role | Phone | + [...] | (Primary Dx); | | | | [place], | [address] [place] | Spondylolisthesis | | | | [place] [address] | [address] | | | | | [phone] | | | +--------+ + + + [...] + + | [facility] | [place] | | Department [address] [place] [address] | [facility] | | [ rep [address]] [ rep [facility] | | [facility]] Signed | - IMAGING | | | | | Patient Name: ALFONSO ASENCIO Physician: | | | SAMANTA. : 1960 Age: 52 Sex: F Unit #: [id number] | | | Exam Date: 01/03/13 Location: [facility] | | | Report #: [id number] Page: | | | %(RAD)RES..mtdd.print.filter("pg") of %(RAD) | | | RES..mtdd.print.filter("tpg") | | | | | | Accession Number: [id number] | | | LUMBAR SPINE CLINICAL HISTORY: [...] | | | Transcribed Date/Time: 01/04/2013 08:50 C Consultant: | | | KVNG <<Signature on File>> | | | Ferdinand | | | Chuckie Reed MD01/04/13 2157 <Electronically signed by Ferdinand Noguera | | | Brianna HARVEY> Ferdinand Reed MD 01/04/13 1170 | | | C Consultant: [employer] Yonnucomroayi26/02/13 6830 | | | Flakito Samuels MD | | + + + + + + + + | Performing | Address | City/State/Zipcode | Phone Number | | Organization | | | | + + + + + | [facility] | [address] | [place] | [phone] | | [facility] | | [address] | | | - IMAGING | | | | + + + + + documented in this encounter Visit Diagnoses + + | Diagnosis | + + | Lumbar radiculopathy - Primary Thoracic or lumbosacral neuritis or radiculitis, | | unspecified | + + | Spondylolisthesis Congenital spondylolisthesis | + + documented in this encounter
[~2019-04-21 07:11] MED LIST changes: +CLONIDINE HCL0.1 MG PO; +SUBOXONE 8 MG-1 EAC1 SL
--- OUTSIDE RECORDS SUMMARY | 2019-04-21 07:16 | XMS ---
PreManage Notification: ALFONSO ASENCIO Security Director Of Home Health Services Events No recent Security Events currently on file CRITERIA MET - PDMP CARE PROVIDERS DOCTOR MISC Primary Care Current PHONE: Unknown [facility] Current PHONE: Unknown Family Dental Care Case or Electronic Court Recorder Current DCO PHONE: [phone] [facility] Primary Care 02/19/2014-Current CONCERN PHONE: [phone] Doug has no Care Guidelines for this patient. Kate VISIT COUNT (12 MO.) 2 [facility] TOTAL 2 NOTE: Visits indicate total known visits. ED/UCC VISIT TRACKING (12 MO.) 04/21/2019 07:13 [facility] [place] TYPE: Emergency COMPLAINT: - SHORTNESS OF BREATH,FAINT 08/13/2018 20:[address] [facility] [place] TYPE: Emergency COMPLAINT: - ABDOMINAL PAIN DIAGNOSES: - Essential (primary) hypertension - Nicotine dependence, unspecified, uncomplicated - Right lower quadrant pain INPATIENT VISIT TRACKING (12 MO.) No inpatient visits to display in this time frame [id number]
== END 2019-04-21 08:26 | disposition home or self-care (01) ==
LOC: ED 07:11
DX: R42 Dizziness and giddiness (principal); F15.93 Other stimulant use, unspecified with withdrawal; I10 Essential (primary) hypertension; F17.200 Nicotine dependence, unspecified, uncomplicated
CPT/HCPCS: 99283

== ENCOUNTER 2022-02-12 11:34 | Emergency (ER) | payer OTHER ==
[~2022-02-12] VITALS: Ht 162.6 cm; Wt 62.9 kg
--- OUTSIDE RECORDS SUMMARY | 2022-02-12 11:36 | XMS ---
PreManage Notification: ALFONSO ASENCIO Security Budget Specialist Events No recent Security Events currently on file CRITERIA MET - Group Notification [facility] There are no care providers on record at this time. Doug has no Care Guidelines for this patient. Care History Medical/Surgical 04/24/2019 [facility] CALLED PATIENT- DISCUSSED PCP OPTIONS IN THE AREA TO ESTABLISH CARE. - PATIENT STATED SHE WILL GO TO [facility] OFFICE-SHE HAS A FOLLOW UP APT WITH DR ESCAMILLA. Kate VISIT COUNT (12 MO.) 1 [facility] TOTAL 1 NOTE: Visits indicate total known visits. ED/UCC VISIT TRACKING (12 MO.) 02/12/2022 11:[address] [facility] [place] TYPE: Emergency COMPLAINT: - COLD SYMPTOMS INPATIENT VISIT TRACKING (12 MO.) No inpatient visits to display in this time frame [email or web address]
[2022-02-12] MEDS ORDERED: ZITHROMAX250 MG PO (13:16)
== END 2022-02-12 13:22 | disposition home or self-care (01) ==
LOC: ED 11:34
DX: J20.9 Acute bronchitis, unspecified (principal); Z20.822 Contact with and (suspected) exposure to COVID-19; I10 Essential (primary) hypertension; F17.200 Nicotine dependence, unspecified, uncomplicated
CPT/HCPCS: 87502; 99283; C9803; U0003

== ENCOUNTER 2022-12-26 11:22 | Emergency (ER) | payer OTHER ==
[~2022-12-26] VITALS: Ht 162.6 cm; Wt 68.0 kg
[~2022-12-26 11:22] MED LIST changes: +ZITHROMAX250 MG PO
--- OUTSIDE RECORDS SUMMARY | 2022-12-26 11:24 | XMS ---
PreManage Notification: ALFONSO ASENCIO Security Wood Router Events No recent Security Events currently on file CRITERIA MET - Group Notification - [facility] CARE PROVIDERS -, Jerry- Dentist: Top Precipitator Operator Helper [facility] PHONE: [phone] -, Billy- Dentist: Top Precipitator Operator Helper [facility] PHONE: [phone] Doug has no Care Guidelines for this patient. Care History Medical/Surgical 04/24/2019 [facility] CALL[facility] PATIENT- DISCUSSED PCP OPTIONS IN THE AREA TO ESTABLISH CARE. - PATIENT STATED SHE WILL GO TO [facility] OFFICE-SHE HAS A FOLLOW UP APT WITH DR ESCAMILLA. Kate VISIT COUNT (12 MO.) [address] [facility] TOTAL 2 NOTE: Visits indicate total known visits. ED/UCC VISIT TRACKING (12 MO.) 12/26/2022 11:23 [facility] TYPE: Emergency COMPLAINT: - FLANK PAIN 02/12/2022 11:35 [facility] TYPE: Emergency COMPLAINT: - COLD SYMPTOMS DIAGNOSES: - Acute bronchitis, unspecified - Contact with and (suspected) exposure to COVID-19 - Essential (primary) hypertension - Nasal congestion - Nicotine dependence, unspecified, uncomplicated INPATIENT VISIT TRACKING (12 MO.) No inpatient visits to display in this time frame [email or web address]
[2022-12-26 11:44] LABS: BILIRUBIN, URINE NEGATIVE (negative); BLOOD/HGB, URINE NEGATIVE (Negative); KETONE, URINE NEGATIVE (Negative); LEUK ESTERASE, URINE NEGATIVE (negative); NITRITE, URINE NEGATIVE (negative)
[2022-12-26 12:04] LABS: BASOPHILS 0.9 % (0-2); EOSINOPHILS 3.5 % (0-6); HEMATOCRIT 35.9 % (35.0-50.0); HEMOGLOBIN 12.2 g/dL (12.0-18.0); LYMPHOCYTES 39.6 % (24-44); MCH 30.2 (27-36); MCHC 34.1 g/dl (30-36); MCV 88.5 fl (81-99); MONOCYTES 10.8 % (0-12); NEUTROPHILS 45.2 % (39-80); PLATELET COUNT 172 K/uL (140-440); RBC 4.05 M/ul (4.3-5.7); RDW 13.5 (10.5-15.0)
[2022-12-26] MEDS ORDERED: BUPRENORPHINE-1 EACH SL (12:09)
[2022-12-26 12:25] LABS: ALBUMIN 3.5 g/dL (3.4-5.0); ALBUMIN/GLOBULIN RATIO 1.06 (1.1-2.4); ANION GAP 14.1 (7-21); BILIRUBIN, TOTAL 0.3 ng/dL (0.2-1.0); BUN/CREATININE RATIO 13.54 (6.0-28.6); CALCIUM 8.9 mg/dL (8.5-10.1); CREATININE, SERUM 0.96 mg/dL (0.55-1.02); POTASSIUM 4.1 mmol/L (3.5-5.1); PROTEIN, TOTAL 6.8 g/dL (6.4-8.2)
[2022-12-26] MEDS ORDERED: CONSTULOSE10 GM/15 M PO (13:41)
[2022-12-26 14:07] VITALS: BP 158/67
== END 2022-12-26 14:09 | disposition home or self-care (01) ==
LOC: ED 11:22
PROVIDERS: Internal Medicine
DX: R10.9 Unspecified abdominal pain (principal); K59.00 Constipation, unspecified; F17.200 Nicotine dependence, unspecified, uncomplicated
CPT/HCPCS: 36415; 74176; 80053; 81003; 85025; J1885; J7040